=== PATIENT | female | born 1980 | race African-American/Black ===

== ENCOUNTER 2025-05-25 13:12 | Inpatient (IN) | payer OTHER ==
[~2025-05-25] VITALS: Ht 167.6 cm; Wt 97.4 kg
[~2025-05-25 13:12] MED LIST: CLIN150C18; HYDR-2598
--- NOTE | 2025-05-25 14:09 | ED.PDOC ---
Musculoskeletal HPI Comments This is a 44 year old female presenting to the ED with chief complaint of left thigh pain. Patient reports that she has been experiencing left sided inner thigh burning pain for the past 2 days. Patient denies any fall, injury, numbness, weakness, tingling, SOB, or chest pain. Chief Complaint: Lower Extremity Time Seen by MD: 14:08 Primary Care Provider: NONE Reviewed Notes: Nurses Notes, Medications, Allergies Allergies: Coded Allergies: Penicillins (Unverified Allergy, Severe, 05/04/14) Home Meds Reported Medications Hydrocodone-Acetaminophen (Hydrocodone/Acetaminophen) 1 Tab Tab, #16 05/04/14 Clindamycin Hcl (Clindamycin Hcl) 150 Mg Cap, #42 05/04/14 Information Source: Patient Mode of Arrival: Ambulatory Location: Left Extremity Location: Thigh Timing: Hours Prehospital treatment: None Severity: Moderate Able to Move Extremity: Yes Bear Weight: Fully Pain: Moderate Mechanism: Spontaneous Circumstances: Spontaneous Onset of Symptoms: Spontaneous Symptoms: Pain DVT Risk Factors: NONE Associated signs and symptoms: Thigh pain Past Medical History PAST MEDICAL HISTORY: TIA Surgical History: 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 Pertinent FELT HAT FLANGING OPERATOR History Family History Family History: No family hx of Cancer, No family hx of HTN Social History Smoker: Non-Smoker Alcohol: Occasionally Drugs: Denies Drug Use Lives In: Home Constitutional: denies: chills, diaphoresis, fatigue, fever, malaise, sweats, weakness, others EENTM: denies: blurred vision, double vision, ear bleeding, ear discharge, ear drainage, ear pain, ear ringing, eye pain, eye redness, hearing loss, mouth pain, mouth swelling, nasal discharge, nose bleeding, nose congestion, nose pain, photophobia, tearing, throat pain, throat swelling, voice changes, others Respiratory: denies: cough, hemoptysis, orthopnea, SOB at rest, shortness of breath, SOB with excertion, stridor, wheezing, others Cardiovascular: denies: chest pain, dizzy spells, diaphoresis, Dyspnea on exertion, edema, irregular heart beat, left arm pain, lightheadedness, palpitations, PND, syncope, others Gastrointestinal: denies: abdomen distended, abdominal pain, blood streaked bowels, constipated, diarrhea, dysphagia, difficulty swallowing, hematemesis, melena, nausea, poor appetite, poor fluid intake, rectal bleeding, rectal pain, vomiting, others Genitourinary: denies: abnormal vagina bleeding, burning, dyspareunia, dysuria, flank pain, frequency, hematuria, incontinence, pain, , vagina discharge, urgency, others Neurological: denies: dizziness, fainting, headache, left sided numbness, left sided weakness, numbness, paresthesia, pre-existing deficit, right sided numbness, right sided weakness, seizure, speech problems, tingling, tremors, weakness, others Musculoskeletal: reports: muscle pain; denies: back pain, gout, joint pain, joint swelling, muscle stiffness, neck pain, others Integumetry: denies: bruises, change in color, change in hair/nails, dryness, laceration, lesions, lumps, rash, wounds, others Allergic/Immunocompromised: denies: Difficulty Healing, Frequent Infections, Hives, Itching, others Hematologic/Lymphatic: denies: anemia, blood clots, easy bleeding, easy bruising, swollen glands, others Endocrine: denies: excessive hunger, excessive sweating, excessive thirst, excessive urination, flushing, intolerance to cold, intolerance to heat, unexplained weight gain, unexplained weight loss, others Psychiatric: denies: anxiety, bipolar disorder, depression, hopeless, panic disorder, schizophrenia, sleepless, suicidal, others All Other Systems: Reviewed and Negative Physical Exam General Appearance: No Apparent Distress, Normal HEENT: Normal ENT Inspection, Pharynx Normal, TMs Normal Neck: Full Range of Motion, Non-Tender, Normal, Normal Inspection Respiratory: Chest Non-Tender, Lungs Clear, No Accessory Muscle Use, No Respiratory Distress, Normal Breath Sounds Cardiovascular: No Edema, No JVD, No Murmur, No Gallop, Normal Peripheral Pulses, Regular Rate/Rhythm Breast Exam: Deferred Gastrointestinal: No Organomegaly, Non Tender, No Pulsatile Mass, Normal Bowel Sounds, Soft Genitalia: Deferred Pelvic: Deferred Rectal: Deferred Extremities: No calf tenderness, Normal capillary refill, Normal inspection, Normal range of motion, Non-tender, No pedal edema Musculoskeletal : Location: Left Extremity Location: Thigh Apperance: Tenderness (Left inner thigh tenderness) 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 Was a procedure done?: No Differential Diagnosis EXT Differential Diagnosis: Deep Vein Thrombosis, Fracture, Sprain, Strain X-Ray, Labs, Meds, VS Vital Signs Date Time Temp Pulse Resp B/P (MAP) Pulse Ox O2 Delivery O2 Flow Rate FiO2 05/25/25 15:18 Room Air* 0 21 05/25/25 15:14 98.5 98 16 132/74 (93) 100 98.5 05/25/25 13:16 98.5 96 18 135/67 98 98.5 Lab Test 05/25/25 14:44 Range/Units White Blood Count 8.5 4.4-10.8 10^3/uL Red Blood Count 3.57 L 4.0-5.20 10^6/uL Hemoglobin 5.3 *L 12.2-16.2 g/dL Hematocrit 18.3 L 36.0-46.0 % Mean Corpuscular Volume 51.3 L 80.0-100.0 fL Mean Corpuscular Hemoglobin 14.8 L 28.0-32.0 pg Mean Corpuscular Hemoglobin Concent 28.9 L 32.0-36.0 g/dL Red Cell Distribution Width 20.5 H 11.8-14.3 % Platelet Count 425 140-450 10^3/uL Mean Platelet Volume 8.1 6.9-10.8 fL Neutrophils (%) (Auto) 62.8 37.0-80.0 % Lymphocytes (%) (Auto) 23.6 10.0-50.0 % Monocytes (%) (Auto) 10.3 0.0-12.0 % Eosinophils (%) (Auto) 2.7 0.0-7.0 % Basophils (%) (Auto) 0.6 0.0-2.0 % Neutrophils # (Auto) 5.3 1.6-8.6 10 ^3/uL Lymphocytes # (Auto) 2.0 0.4-5.4 10 ^3/uL Monocytes # (Auto) 0.9 0-1.3 10 ^3/uL Eosinophils # (Auto) 0.2 0-0.8 10 ^3/uL Basophils # (Auto) 0.1 0-0.2 10 ^3/uL Nucleated Red Blood Cells 0.1 % Platelet Estimate Adequate Hypochromasia (manual) Marked Poikilocytosis (manual) Moderate Anisocytosis (manual) Slight Microcytosis Marked Sodium Level 139 136-145 mmol/L Potassium Level 3.8 3.5-5.1 mmol/L Chloride Level 105 98-107 mmol/L Carbon Dioxide Level 26 20-31 mmol/L Anion Gap 8 5-15 Blood Urea Nitrogen 9 9-23 mg/dL Creatinine 0.65 0.550-1.02 mg/dL Glomerular Filtration Rate Calc 110 >90 mL/min BUN/Creatinine Ratio 13.8 10.0-20.0 Serum Glucose 92 74-106 mg/dL Calcium Level 8.7 8.7-10.4 mg/dL Time of 1ST Reevaluation: 15:01 Reevaluation 1ST: Unchanged Patient Education/Counseling: Diagnosis, Treatment Family Education/Counseling: Diagnosis, Treatment Departure 1 Departure Time of Disposition: 16:46 (Patient's hemoglobin is critically low. Patient's symptomatic anemia. We will admit patient for further workup and expert consultation) Impression: Primary Impression: Symptomatic anemia Additional Impression: Generalized weakness Disposition: ADMITTED INPATIENT Admit to: Tele Condition: Guarded Critical Care Note Critical Care Time?: Yes Critical care comment: Critical anemia Authorized and Performed by: Keyshawn Valera MD Total critical care time: Approximately 38 minutes Due to a high probability of clinically significant, life threatening deterioration, the patient required my highest level of preparedness to intervene emergently and I personally spent this critical care time directly and personally managing the patient. This critical care time included obtaining a history; examining the patient; pulse oximetry; ordering and review of studies; arranging urgent treatment with development of a management plan; evaluation of patient's response to treatment; frequent reassessment; and, discussions with other providers. This critical care time was performed to assess and manage the high probability of imminent, life-threatening deterioration that could result in multi-organ failure. It was exclusive of separately billable procedures and treating other patients and teaching time. Please see my other sections and the rest of the note for further information on patient assessment and treatment. Stability Stability form required: No Heart Score Heart Score: Heart Score Response (Comments) Value History N/A 0 EKG N/A 0 Age N/A 0 Risk Factors N/A 0 Troponin N/A 0 Total 0 I personally scribed for KEYSHAWN VALERA MD ([email or web address]) on 05/25/25 at 14:09. Electronically submitted by Milo Quiles ([email or web address]). KEYSHAWN VALERA MD May 25, 2025 14:09
[2025-05-25 14:59] LABS: Mean Corpuscular Volume 51.3 fL (80.0-100.0)
[2025-05-25 15:01] LABS: Hematocrit 18.3 % (36.0-46.0); Mean Corpuscular Hemoglobin 14.8 pg (28.0-32.0); Nucleated Red Blood Cells % 0.1 %
[2025-05-25 15:05] LABS: Chloride 105 mmol/L (98-107); Potassium 3.8 mmol/L (3.5-5.1); Sodium 139 mmol/L (136-145)
--- NOTE | 2025-05-25 15:05 | DVH ---
EXAM: XY L FEMUR XRAY HISTORY: left thigh COMPARISON: None TECHNIQUE: AP and lateral views of the left femur were performed. FINDINGS: No evidence of fracture or other osseous abnormality about the left femur. The left hip and knee are grossly normal. IMPRESSION: No acute fracture of the left femur.
[2025-05-25 15:06] LABS: Anion Gap 8 (5-15); Carbon Dioxide 26 mmol/L (20-31)
[2025-05-25 15:09] LABS: Calcium 8.7 mg/dL (8.7-10.4)
[2025-05-25 15:11] LABS: BUN/Creatinine Ratio 13.8 (10.0-20.0); Blood Urea Nitrogen 9 mg/dL (9-23); Glucose 92 mg/dL (74-106)
[2025-05-25 15:13] LABS: Hemoglobin 5.3 g/dL (12.2-16.2)
[2025-05-25 16:42] LABS: Anisocytosis Slight
[2025-05-25] MEDS ORDERED: TEMAZEPAM 15 MG CAP PO PRN (19:30)
[2025-05-25] MEDS ORDERED: ONDANSETRON HCL 4 MG/2 ML VIAL IV PRN (19:30)
[2025-05-25 19:35] VITALS: BP 117/60; PULSE 82; RESP 14; TEMP 99.3
[2025-05-25 19:50] VITALS: BP 109/55; PULSE 88; RESP 16; TEMP 99.3
[2025-05-25 20:10] VITALS: BP 108/57; PULSE 89; RESP 21; TEMP 98.8
--- NOTE | 2025-05-25 21:33 | DVHHP2 ---
History of Present Illness Reason for Visit: Fatigue History of Present Illness 44-year-old female presents for evaluation of fatigue. Patient initially presented with complaints of left inner thigh pain. Patient states she was having cramps yesterday and today she developed some pain at the inner thigh. No swelling or fever. She also reports generalized fatigue with occasional shortness for breath. She does report a history of anemia and has had a blood transfusion in the past. Past Medical History Brain aneurysm, anemia Past Surgical History , brain surgery Family History Noncontributory Smoke: No ALCOHOL: occassional Drugs: None Lives: with Family Review of Systems Review of Systems Review of systems are currently negative otherwise addressed in HPI. Allergies: Coded Allergies: Penicillins (Unverified Allergy, Severe, 05/04/14) Medications Current Medications Medications Dose Ordered Sig/Cj Route Start Time Stop Time Status Last Admin Dose Admin Temazepam 15 mg QHSP PRN PO 05/25/25 19:30 Ondansetron HCl 4 mg Q4HP PRN IV 05/25/25 19:30 Acetaminophen 650 mg Q6HP PRN PO 05/25/25 19:30 Exam Vital Signs Vital Signs Date Time Temp Pulse Resp B/P (MAP) Pulse Ox O2 Delivery O2 Flow Rate FiO2 05/25/25 20:10 98.8 89 21 108/57 98.8 05/25/25 19:00 100 05/25/25 15:18 Room Air* 0 21 Exam Gen: 44-year-old female in mild distress Skin: Warm, dry, normal color and texture, no rash. HEENT: Normocephalic atraumatic, mucous membranes moist and pink. Neck: Cervical and supraclavicular nodes normal without enlargement, trachea is midline, thyroid gland is normal without masses. Pulmonary: Clear to auscultation and percussion bilaterally. Cardiac: Regular rate and rhythm. No murmur Abdomen: Soft, nontender, nondistended, bowel sounds present all 4 quadrants, no guarding, no rigidity, no organomegaly. Extremities: No cyanosis, clubbing, no edema Neuro: Cranial nerves II through XII grossly intact, normal affect and speech, no focal motor deficits. Labs/Xrays ORDERING PHYSICIAN: KEYSHAWN GALVAN MD PROCEDURE(s): LFEM - L FEMUR XRAY REASON: left thigh ORDER NUMBER(s): [id number], ACCESSION NUMBER(s): [id number] EXAM: XY L FEMUR XRAY HISTORY: left thigh COMPARISON: None TECHNIQUE: AP and lateral views of the left femur were performed. FINDINGS: No evidence of fracture or other osseous abnormality about the left femur. The left hip and knee are grossly normal. IMPRESSION: No acute fracture of the left femur. Labs Test 05/25/25 14:44 Range/Units White Blood Count 8.5 4.4-10.8 10^3/uL Red Blood Count 3.57 L 4.0-5.20 10^6/uL Hemoglobin 5.3 *L 12.2-16.2 g/dL Hematocrit 18.3 L 36.0-46.0 % Mean Corpuscular Volume 51.3 L 80.0-100.0 fL Mean Corpuscular Hemoglobin 14.8 L 28.0-32.0 pg Mean Corpuscular Hemoglobin Concent 28.9 L 32.0-36.0 g/dL Red Cell Distribution Width 20.5 H 11.8-14.3 % Platelet Count 425 140-450 10^3/uL Mean Platelet Volume 8.1 6.9-10.8 fL Neutrophils (%) (Auto) 62.8 37.0-80.0 % Lymphocytes (%) (Auto) 23.6 10.0-50.0 % Monocytes (%) (Auto) 10.3 0.0-12.0 % Eosinophils (%) (Auto) 2.7 0.0-7.0 % Basophils (%) (Auto) 0.6 0.0-2.0 % Neutrophils # (Auto) 5.3 1.6-8.6 10 ^3/uL Lymphocytes # (Auto) 2.0 0.4-5.4 10 ^3/uL Monocytes # (Auto) 0.9 0-1.3 10 ^3/uL Eosinophils # (Auto) 0.2 0-0.8 10 ^3/uL Basophils # (Auto) 0.1 0-0.2 10 ^3/uL Nucleated Red Blood Cells 0.1 % Platelet Estimate Adequate Hypochromasia (manual) Marked Poikilocytosis (manual) Moderate Anisocytosis (manual) Slight Microcytosis Marked Sodium Level 139 136-145 mmol/L Potassium Level 3.8 3.5-5.1 mmol/L Chloride Level 105 98-107 mmol/L Carbon Dioxide Level 26 20-31 mmol/L Anion Gap 8 5-15 Blood Urea Nitrogen 9 9-23 mg/dL Creatinine 0.65 0.550-1.02 mg/dL Glomerular Filtration Rate Calc 110 >90 mL/min BUN/Creatinine Ratio 13.8 10.0-20.0 Serum Glucose 92 74-106 mg/dL Calcium Level 8.7 8.7-10.4 mg/dL SEPSIS Sepsis Screen Date sepsis recognized/suspect: May 25, 2025 Time Sepsis recognized/suspect: 1914 Recent Procedure: No On Antibiotic Therapy: No Respiratory Rate >20: No Heart Rate >90: No Temp<36 C (96.8 F) or >38.3 C: No SBP <90 or MAP <65 mmHG: No New Acute Mental Status Change: No Is the patient on CPAP, BIPAP,: No Physician Orders L Femur Xray (05/25/25 14:10) Regular Diet (05/26/25 Breakfast) Basic Metabolic Panel (05/26/25 04:00) Admit (05/25/25 19:20) Temazepam (Restoril) (05/25/25 19:30) Ondansetron Hcl (Zofran) (05/25/25 19:30) Complete Blood Count (05/26/25 04:00) Condition: Stable (05/25/25 19:20) Acetaminophen Tablet (Tylenol Tablet) (05/25/25 19:30) Bedrest With Bathroom Privileg (05/25/25 19:20) Vital Signs Date Time Temp Pulse Resp B/P (MAP) Pulse Ox O2 Delivery O2 Flow Rate FiO2 05/25/25 20:10 98.8 89 21 108/57 98.8 05/25/25 19:50 99.3 88 16 109/55 99.3 05/25/25 19:35 99.3 82 14 117/60 99.3 05/25/25 19:00 88 25 125/60 (81) 100 05/25/25 15:18 Room Air* 0 21 05/25/25 15:14 98.5 98 16 132/74 (93) 100 98.5 Laboratory Tests Test 05/25/25 14:44 White Blood Count 8.5 10^3/uL (4.4-10.8) Assessment/Plan Assessment/Plan Assessment Symptomatic anemia Plan Admit the patient to [facility] to the hospitalist Transfuse 2 units of packed red cells Iron panel pending Continue treatment per orders. Plan discussed with: Patient My Orders Orders - STACY LALA Procedure Category Date Status Time Regular Diet DIET 05/26/25 Transmitted Breakfast Basic Metabolic Panel LAB 05/26/25 Verified 04:00 Admit ADMIT 05/25/25 Transmitted 19:20 Temazepam (Restoril) PHA 05/25/25 In Process 19:30 Ondansetron Hcl PHA 05/25/25 In Process (Zofran) 19:30 Complete Blood Count LAB 05/26/25 Verified 04:00 Condition: Stable TITI 05/25/25 In Process 19:20 Acetaminophen Tablet PHA 05/25/25 In Process (Tylenol Tablet) 19:30 Bedrest With Bathroom TITI 05/25/25 In Process Privileg 19:20 Date of Service: May 25, 2025 Billing Provider: STACY LALA Common Visit Codes: [id number] INP/OBS CARE (MOD) STACY LALA May 25, 2025 21:33
[2025-05-25 22:10] LABS: Total Iron Binding Capacity 338.0 ug/dL (250-425)
[2025-05-25 22:24] LABS: Iron 16.0 ug/dL (50-170)
[2025-05-25] MEDS: ACETAMINOPHEN 325 MG TAB PO PRN (22:27)
[2025-05-25 22:40] VITALS: PULSE 84; RESP 22; O2SAT 98
[2025-05-25 23:00] VITALS: BP 108/55; PULSE 85; RESP 20; TEMP 99
[2025-05-26] VITALS (8 sets, daily range): BP systolic 101–129; BP diastolic 63–72; PULSE 18–90; RESP 16–18; TEMP 98–98.4; O2SAT 98
[2025-05-26 04:41] LABS: Hematocrit 20.2 % (36.0-46.0); Mean Corpuscular Hemoglobin 15.5 pg (28.0-32.0); Mean Corpuscular Volume 52.9 fL (80.0-100.0); Nucleated Red Blood Cells % 0.0 %
[2025-05-26 04:43] LABS: Hemoglobin 5.9 g/dL (12.2-16.2)
[2025-05-26 04:45] LABS: Chloride 106 mmol/L (98-107); Potassium 3.5 mmol/L (3.5-5.1); Sodium 140 mmol/L (136-145)
[2025-05-26 04:46] LABS: Anion Gap 9 (5-15); Carbon Dioxide 25 mmol/L (20-31)
[2025-05-26 04:51] LABS: BUN/Creatinine Ratio 13.1 (10.0-20.0); Glucose 91 mg/dL (74-106)
[2025-05-26 05:00] LABS: Blood Urea Nitrogen 8 mg/dL (9-23); Calcium 8.5 mg/dL (8.7-10.4)
--- NOTE | 2025-05-26 12:13 | DVHPN2 ---
Subjective having some bilateral thigh pain Reviewed: H&P Changes from previous H/P or p: No Changes Objective Vitals Vital Signs Date Time Temp Pulse Resp B/P (MAP) Pulse Ox O2 Delivery O2 Flow Rate FiO2 05/26/25 12:02 98.4 82 16 101/65 98.4 05/26/25 11:18 98 05/26/25 07:51 Room Air* 0 21 Intake/Output Intake and Output 05/26/25 07:00 Intake Total 900 ml Output Total 0 ml Balance 900 ml Intake Oral 0 ml Blood Product 900 ml Output Urine Total 0 ml General Appearance: Alert, Oriented X3 HEENT: Atraumatic Cardiovascular: Regular rate, Normal S1, Normal S2 Abdomen: Normal bowel sounds Medications Current Medications Medications Dose Ordered Sig/Cj Route Start Time Stop Time Status Last Admin Dose Admin Temazepam 15 mg QHSP PRN PO 05/25/25 19:30 Ondansetron HCl 4 mg Q4HP PRN IV 05/25/25 19:30 Acetaminophen 650 mg Q6HP PRN PO 05/25/25 19:30 05/25/25 22:27 650 MG Laboratory Results Laboratory Tests 05/26/25 04:04 Chemistry Test 05/25/25 14:44 05/26/25 04:04 Calcium Level 8.7 mg/dL (8.7-10.4) 8.5 mg/dL (8.7-10.4) L Assessment/Plan Assessment/Plan Symptomatic anemia Getting [address] pelvis to evaluate source Plan discussed with: Patient My Orders Orders - BAILEY CERVANTES MD Procedure Category Date Status Time Pelvis W Wo Contrast CT 05/26/25 Verified 12:10 Date of Service: May 26, 2025 Billing Provider: BAILEY CERVANTES MD Common Visit Codes: [id number] INP/OBS CARE(HIGH) BAILEY CERVANTES MD May 26, 2025 12:13
[2025-05-26] MEDS: IOHEXOL 300 MG/ML 100ML BOTTLE IJ ONE (13:26)
--- NOTE | 2025-05-26 17:02 | DVH ---
History: bilateral thigh pain Comparison Study: None TECHNIQUE: Multidetector spiral CT of the pelvis was performed from iliac crests to pubic symphysis. 100 cc of intravenous contrast was administered during this examination. Portal venous imaging was obtained. Axial, coronal and sagittal multiplanar reformats were performed by the technologist on a separate workstation. Radiation Dose : CT Dose: CTDI volume is 24.35 mGy. Dose-length product is 2681.79 mGy*cm FINDINGS: Visualized bowel: Small bowel and colon are normal in caliber and distribution. The appendix is not visualized; however, no secondary findings of acute appendicitis identified. Ascites: Absent Lymphadenopathy: Few mildly prominent reactive appearing ly 4 diffuse soft tissue edema throughout the medial aspect of the left thigh mph nodes in the left groin with surrounding inflammatory changes or edema. Pelvis Wall and Mesentery: Unremarkable. Vasculature: The visualized abdominal aorta is normal in size and caliber. Abdominal and pelvic vessels demonstrate normal enhancement. Pelvic Organs: Uterus is markedly enlarged extending to the level of the umbilicus with exophytic fibroid at the fundus. Musculoskeletal: No aggressive focal bony lesions, acute fractures or dislocation. Bladder: Unremarkable IMPRESSION: Few reactive inflamed appearing lymph nodes on the left with surrounding soft tissue edema the also extends throughout the medial left thigh. Please correlate with any obvious cellulitis clinically. Also consider ultrasound to exclude DVT which could account for this appearance. Right leg and groin appear unremarkable on CT. Bulky multi fibroid uterus extending to the level of the umbilicus.
[2025-05-27 01:00] VITALS: BP 130/69; PULSE 82; RESP 18; TEMP 98; O2SAT 98
[2025-05-27 05:00] VITALS: BP 126/64; PULSE 82; RESP 18; TEMP 97.9; O2SAT 99
[2025-05-27 07:45] LABS: Hematocrit 24.0 % (36.0-46.0); Hemoglobin 7.1 g/dL (12.2-16.2)
[2025-05-27 08:00] VITALS: PULSE 81; RESP 20; O2SAT 98
[2025-05-27 08:43] VITALS: BP 126/56; PULSE 81; RESP 20; TEMP 98.5; O2SAT 98
--- NOTE | 2025-05-27 09:17 | DVH ---
Left lower extremity venous duplex CLINICAL HISTORY: left leg swelling COMPARISON: None Findings and Technique: Duplex doppler evaluation of the deep venous system of the left lower extremity from the common femoral vein to the popliteal vein including color doppler and spectral/pulsed waveform analysis was performed. Non occlusive deep venous thrombus in the left common femoral and profunda femoral veins. The left greater saphenous vein is also completely occluded near the saphenofemoral junction. The femoral vein demonstrates appropriate compressibility and waveform variability. The popliteal vein demonstrates appropriate compressibility and waveform variability. There is normal compressibility at the tibioperoneal trunk. IMPRESSION: 1. Non occlusive deep venous thrombus in the left common femoral and profunda femoral veins. 2. The left greater saphenous vein is also completely occluded near the saphenofemoral junction. Critical findings discussed with Kat Wheat RN by Dr. Markham via phone on 05/27/2025 09:14 AM.
[2025-05-27] MEDS ORDERED: APIX5TAB PO (12:31)
[2025-05-27 13:00] VITALS: BP 115/75; PULSE 83; RESP 18; TEMP 98.7; O2SAT 98
[2025-05-27 14:02] VITALS: BP 115/75; PULSE 73; RESP 18; TEMP 98.7; O2SAT 98
--- NOTE | 2025-05-27 17:52 | DVHDS2 ---
Discharge Summary Date of Admission May 25, 2025 at 19:20 Date of Discharge: May 27, 2025 Labs/Diagnostic Data: Laboratory Results Test 05/27/25 06:49 05/26/25 04:04 05/25/25 14:44 Hemoglobin 7.1 g/dL (12.2-16.2) Hematocrit 24.0 % (36.0-46.0) White Blood Count 7.0 10^3/uL (4.4-10.8) Red Blood Count 3.82 10^6/uL (4.0-5.20) Mean Corpuscular Volume 52.9 fL (80.0-100.0) Mean Corpuscular Hemoglobin 15.5 pg (28.0-32.0) Mean Corpuscular Hemoglobin Concent 29.3 g/dL (32.0-36.0) Red Cell Distribution Width 22.5 % (11.8-14.3) Platelet Count 371 10^3/uL (140-450) Mean Platelet Volume 8.1 fL (6.9-10.8) Neutrophils (%) (Auto) 57.2 % (37.0-80.0) Lymphocytes (%) (Auto) 26.4 % (10.0-50.0) Monocytes (%) (Auto) 11.1 % (0.0-12.0) Eosinophils (%) (Auto) 4.3 % (0.0-7.0) Basophils (%) (Auto) 1.0 % (0.0-2.0) Neutrophils # (Auto) 4.0 10 ^3/uL (1.6-8.6) Lymphocytes # (Auto) 1.9 10 ^3/uL (0.4-5.4) Monocytes # (Auto) 0.8 10 ^3/uL (0-1.3) Eosinophils # (Auto) 0.3 10 ^3/uL (0-0.8) Basophils # (Auto) 0.1 10 ^3/uL (0-0.2) Nucleated Red Blood Cells 0.0 % Sodium Level 140 mmol/L (136-145) Potassium Level 3.5 mmol/L (3.5-5.1) Chloride Level 106 mmol/L (98-107) Carbon Dioxide Level 25 mmol/L (20-31) Anion Gap 9 (5-15) Blood Urea Nitrogen 8 mg/dL (9-23) Creatinine 0.61 mg/dL (0.550-1.02) Glomerular Filtration Rate Calc 112 mL/min (>90) BUN/Creatinine Ratio 13.1 (10.0-20.0) Serum Glucose 91 mg/dL (74-106) Calcium Level 8.5 mg/dL (8.7-10.4) Platelet Estimate Adequate Hypochromasia (manual) Marked Poikilocytosis (manual) Moderate Anisocytosis (manual) Slight Microcytosis Marked Iron Level 16 ug/dL (50-170) Total Iron Binding Capacity 338 ug/dL (250-425) Percent Iron Saturation 4.7 % (15-50) Other Laboratory Tests 05/27/25 06:49 05/26/25 04:04 Brief Hx & Hospital Course: 44-year-old female presents for evaluation of fatigue. Patient initially presented with complaints of left inner thigh pain. Patient states she was having cramps yesterday and today she developed some pain at the inner thigh. No swelling or fever. She also reports generalized fatigue with occasional shortness for breath. She does report a history of anemia and has had a blood transfusion in the past. New left femoral DVT Anemia resolved, and recommended to follow with large engine assembler at outpatient Condition at Discharge: Good Final Diagnosis/Problems List acute DVT left femoral anemia Discharge Disposition: Home Discharge Instruct/Medications Diet: Regular Activity: No Restrictions, As Tolerated Follow Up/Referral: PCP in 7 days OB Medications: eliquis Scheduled Apixaban Base (Eliquis), 5 MG PO BID Apixaban Base (Eliquis), 10 MG PO BID Miscellaneous Medications Clindamycin Hcl (Clindamycin Hcl), (Reported) Hydrocodone-Acetaminophen (Hydrocodone/Acetaminophen), (Reported) Discharge Statement: "Patient was advised to return to the ER or call 911 if any headaches, dizziness, shortness of breath, chest pain, abdominal pain, bleeding, fevers, or worsening of medical condition. Patient was counseled about treatment plan, medications, possible side effects, patientverbalized understanding. All questions were answered to the best of my ability. This discharge took greater then 30 minutes in planning, reviewing documentation, counseling the patient, and discussing with other team members." ASSESSMENT ASSESSMENT Assessment acute DVT left femoral anemia Date of Service: May 27, 2025 Billing Provider: BAILEY CERVANTES MD Common Visit Codes: [id number]/[id number] DISCH DAY >30min BAILEY CERVANTES MD May 27, 2025 17:52
== END 2025-05-27 15:25 | disposition home or self-care (01) | DRG 197 ==
LOC: ER 13:12 → OVERFLOW 19:20 → WEST WING 05-26 16:19
PROVIDERS: ADMIT Hospitalist; ATTEND Hospitalist
PROC: 30233N1 Transfusion of Nonautologous Red Blood Cells into Peripheral Vein, Percutaneous Approach (ICD-10-PCS; principal; 2025-05-25)
DX: I82.412 Acute embolism and thrombosis of left femoral vein (principal); D64.9 Anemia, unspecified; Z86.73 Personal history of transient ischemic attack (TIA), and cerebral infarction without residual deficits; Z88.0 Allergy status to penicillin
CPT/HCPCS: 36415; 36430; 72194; 80048; 83540; 83550; 85014; 85018; 85025; 86850; 86900; 86901; 86920; 93971; 99291; G0378